=== PATIENT | male | born 1975 | race Caucasian/White ===

== ENCOUNTER 2018-11-16 11:41 | Emergency (ER) | payer BC, OTHER ==
[2018-11-16 11:49] VITALS: BP 107/63; PULSE 82; TEMP 97.6; BMI 22.7
[2018-11-16] MEDS ORDERED: ACETAMINOPHEN 325 MG TABLET (FP) PO ONE (12:21)
[2018-11-16] MEDS ORDERED: ACETAMINOPHEN 325 MG TABLET (FP) ONE (12:32)
[2018-11-16 12:42] LABS: BASO % 0.5 % (0-2.0); EOS % 2.3 % (0-4.5); HEMATOCRIT 46.6 % (35.4-49); HEMOGLOBIN 15.9 GM/dL (11.7-16.9); LYMPH % 37.9 % (8-40); MCH 28.7 pg (25.7-33.7); MEAN CELL VOLUME 84.4 fl (80-96); MEAN PLT VOLUME 8.2 fl (7.5-11.1); MONO % 4.9 % (3.8-10.2); NEUT % 54.4 % (42.8-82.8); PLATELET COUNT 289 K/MM3 (134-434); RBC 5.52 M/mm3 (4.00-5.60); RDW 13.7 % (11.9-15.9); WHITE BLOOD COUNT 6.5 K/mm3 (4.0-10.0)
--- NOTE | 2018-11-16 12:50 | PDOC ---
History of Present Illness - General Chief Complaint: Chest Pain Stated Complaint: LT. SIDE PAIN Time Seen by Provider: 11/16/18 12:17 History Source: Patient Exam Limitations: Clinical Condition - History of Present Illness Initial Comments: 11/16/18 12:45 Patient with no significant past medical history present with complaint of five- day history of left-sided chest pain under lower ribs which has been worsening since yesterday. Patient reported doing moving stuff from his garage 5 days ago and did a lot of heavy lifting. Patient reported pain to left-sided chest wall with movement and deep breathing. Denies shortness of breath, palpitation, dizziness, nausea or vomiting. Denies headache, lightheadedness, abdominal pain , fever or chills. Patient did not take anything for symptoms Timing/Duration: other (5 days) Past History - Past Medical History Allergies/Adverse Reactions: Allergies Allergy/AdvReac Type Severity Reaction Status Date / Time No Known Allergies Allergy Verified 11/16/18 11:45 Home Medications: Ambulatory Orders Esomeprazole Mag Trihydrate [Nexium] 40 mg PO DAILY #30 capsule 12/09/14 Pantoprazole Sodium [Protonix] 40 mg PO DAILY #30 tablet. 03/04/16 Ibuprofen 800 mg PO Q8H PRN #20 tablet 11/16/18 COPD: No - Immunization History Immunization Up to Date: Yes - Suicide/Smoking/Psychosocial Hx Smoking History: Never smoked Have you smoked in the past 12 months: No Number of Cigarettes Smoked Daily: 0 If you are a former smoker, when did you quit?: 10/2015 Information on smoking cessation initiated: No Hx Alcohol Use: No Drug/Substance Use Hx: No Review of Systems - Review of Systems Able to Perform ROS?: Yes Is the patient limited Uzbek proficient: No Constitutional: No: Chills, Fever, Weakness HEENTM: No: Symptoms Reported, See HPI, Eye Pain, Blurred Vision, Tearing, Recent change in vision, Double Vision, Cataracts, Ear Pain, Ocular Prothesis, Ear Discharge, Nose Pain, Nose Congestion, Tinnitus, Nose Bleeding, Hearing Loss , Throat Pain, Throat Swelling, Mouth Pain, Dental Problems, Difficulty Swallowing, Mouth Swelling, Other Respiratory: No: Symptoms reported, See HPI, Cough, Orthopnea, Shortness of Breath, SOB with Exertion, SOB at Rest, Stridor, Wheezing, Productive cough, Hemoptysis, Other Cardiac (ROS): Yes: Symptoms Reported, See HPI, Chest Pain (left lower chest). No: Edema, Irregular Heart Rate, Lightheadedness, Palpitations, Syncope, Chest Tightness, Other ABD/GI: No: Nausea, Vomiting Musculoskeletal: Yes: Symptoms Reported, See HPI, Muscle Pain (left lower ribs) Integumentary: No: Symptoms Reported Neurological: No: Headache, Paresthesia, Weakness, Dizziness All Other Systems: Reviewed and Negative *Physical Exam - Vital Signs Last Vital Signs Temp Pulse Resp BP Pulse Ox 97.6 F 82 17 107/63 99 11/16/18 11:46 11/16/18 11:46 11/16/18 11:46 11/16/18 11:46 11/16/18 11:46 - Physical Exam Comments: 11/16/18 12:50 GENERAL: Well developed, well nourished. Awake and alert. No acute distress. HEENT: Normocephalic, atraumatic. PERRLA, EOMI. No conjunctival pallor. Sclera are non-icteric. Moist mucous membranes. Oropharynx is clear. NECK: Supple. Full ROM. CARDIOVASCULAR: Regular rate and rhythm. No murmurs, rubs, or gallops. Distal pulses are 2+ and symmetric. PULMONARY: No evidence of respiratory distress. Lungs clear to auscultation bilaterally. No wheezing, rales or rhonchi. ABDOMINAL: Soft. Non-tender. Non-distended. No rebound or guarding. No organomegaly. Normoactive bowel sounds. MUSCULOSKELETAL Normal range of motion at all joints. EXTREMITIES: No cyanosis. No clubbing. No edema. No calf tenderness. SKIN: Warm and dry. Normal capillary refill. No rashes. No jaundice. NEUROLOGICAL: Alert, awake, appropriate. Gait is normal without ataxia. PSYCHIATRIC: Cooperative. Good eye contact. Appropriate mood General Appearance: Yes: Nourished, Appropriately Dressed. No: Apparent Distress ED Treatment Course - LABORATORY CBC & Chemistry Diagram: 11/16/18 12:35 - ADDITIONAL ORDERS Additional order review: 11/16/18 12:35 RBC 5.52 MCV 84.4 MCHC 34.0 RDW 13.7 MPV 8.2 Neutrophils % 54.4 Lymphocytes % 37.9 Monocytes % 4.9 Eosinophils % 2.3 Basophils % 0.5 - RADIOLOGY Radiology Studies Ordered: Category Date Time Status CHEST PA & LAT [RAD] Stat Radiology 11/16/18 12:21 Ordered RIBS-LEFT SIDE [RAD] Stat Radiology 11/16/18 12:22 Ordered Medical Decision Making - Medical Decision Making 11/16/18 12:47 Patient with no significant past medical history present with complaint of five- day history of left-sided chest pain under lower ribs which has been worsening since yesterday. Patient reported doing moving stuff from his garage 5 days ago and did a lot of heavy lifting. Patient reported pain to left-sided chest wall with movement and deep breathing. Denies shortness of breath, palpitation, dizziness, nausea or vomiting. Denies headache, lightheadedness, abdominal pain , fever or chills. Patient did not take anything for symptoms Exam significant for reproducible moderate tenderness to chest wall of left lower rib cage. Normal cardio exam. Lungs clear to auscultation bilateral. No abdominal tenderness. Symptoms likely costochondritis from heavy lifting versus less likely cardiogenic pain. CBC and cardiac profile labs ordered. EKG ordered. Chest x-ray ordered to rule out acute chest pathology. Tylenol 975 mg by mouth ordered for pain. Reassess after lab and imaging 11/16/18 13:32 cBC and cardiac profile within normal limits. Chest x-ray shows no acute pathology. Patient symptoms likely costochondritis and stable for discharge on ibuprofen as needed for pain with strict follow-up. Plan discussed with patient patient agrees with plan. Patient stable for discharge *DC/Admit/Observation/Transfer Diagnosis at time of Disposition: Costochondral chest pain Intercostal muscle strain Qualifiers: Encounter type: initial encounter Qualified Code(s): S29.011A - Strain of muscle and tendon of front wall of thorax, initial encounter - Discharge Dispostion Disposition: HOME Condition at time of disposition: Stable Decision to Admit order: No - Prescriptions Prescriptions: Ibuprofen 800 mg PO Q8H PRN #20 tablet PRN Reason: pain - Referrals Referrals: Haider Raphael MD [Staff Physician] - - Patient Instructions Printed Discharge Instructions: DI for Chest Pain, DI for Costochondritis Additional Instructions: Your labs and checks x-ray is normal. Your symptoms is likely from muscle pain. Take prescribed ibuprofen as needed for pain. Apply warm compresses to chest wall 2-3 times a day as needed for pain. Come back to emergency room if worsening chest pain with shortness of breath, dizziness, severe vomiting. Follow-up referred cardiology if symptoms persist for more than 4 days - Post Discharge Activity
--- NOTE | 2018-11-16 12:53 | PDOC ---
*Physical Exam - Vital Signs Last Vital Signs Temp Pulse Resp BP Pulse Ox 97.6 F 82 17 107/63 99 11/16/18 11:46 11/16/18 11:46 11/16/18 11:46 11/16/18 11:46 11/16/18 11:46 - Physical Exam Comments: 11/16/18 12:47 vss well appearing seated in stretcher, no respiratory distress s1s2 rrr, no murmur ctab skin clear, no rash, focal reproducible ttp between L 6th and 7th ribs, no focal bony rib deformity/ttp/crepitus. Heart Score/ECG Review #1 ECG reviewed & interpreted by me at: 11:52 General ECG Interpretation: Sinus Rhythm, Normal Rate (69), Normal Intervals ( qtc 432), No acute ischemic changes ED Treatment Course - LABORATORY CBC & Chemistry Diagram: 11/16/18 12:35 - ADDITIONAL ORDERS Additional order review: 11/16/18 12:35 RBC 5.52 MCV 84.4 MCHC 34.0 RDW 13.7 MPV 8.2 Neutrophils % 54.4 Lymphocytes % 37.9 Monocytes % 4.9 Eosinophils % 2.3 Basophils % 0.5 - Medications Given in the ED: ED Medications Discontinued Medications Generic Name Dose Route Start Last Admin Trade Name Freq PRN Reason Stop Dose Admin Acetaminophen 975 mg 11/16/18 12:21 11/16/18 12:30 Tylenol - PO 11/16/18 12:22 975 mg ONCE ONE Administration Medical Decision Making - Medical Decision Making 11/16/18 12:50 Healthy 43-year-old male who presents with left lower anterior rib pain that began about last night. The patient was moving heavy furniture throughout the day, developed gradual onset of focal pain worse with positional changes and deep inspiration but not associated with any precordial chest pain or dyspnea on exertion. No cough or fevers or chills, no direct injury. Did not take anything for pain, presents for evaluation. Exam as noted and normal 43-year-old male with left anterior rib muscle strain likely from heavy lifting , no red flags on history or physical exam and reproducible findings suggestive of musculoskeletal etiology, not consistent with cardiopulmonary etiology. EKG, chest x-ray Pain control Reassess and disposition accordingly *DC/Admit/Observation/Transfer Diagnosis at time of Disposition: Intercostal muscle strain Qualifiers: Encounter type: initial encounter Qualified Code(s): S29.011A - Strain of muscle and tendon of front wall of thorax, initial encounter - Referrals - Patient Instructions - Post Discharge Activity
[2018-11-16] MEDS ORDERED: IBUPROFEN 400 MG TABLET (FP) PO ONE ×2 (13:37→14:09)
--- NOTE | 2018-11-16 15:30 | EKG ---
Test Reason : Blood Pressure : / mmHG Vent. Rate : 069 BPM Atrial Rate : 069 BPM P-R Int : 114 ms QRS Dur : 088 ms QT Int : 404 ms P-R-T Axes : -17 077 073 degrees QTc Int : 432 ms NORMAL SINUS RHYTHM WITH SINUS ARRHYTHMIA NORMAL ECG WHEN COMPARED WITH ECG OF 04-MAR-2016 01:24, PREMATURE ATRIAL COMPLEXES ARE NO LONGER PRESENT Confirmed by RENITA COOK, CONSTANCE ([id number]) on 11/16/2018 3:29:59 PM Referred By: Confirmed By:CONSTANCE MARAVILLA MD
== END 2018-11-16 14:07 | disposition home or self-care (01) ==
LOC: JER 11:41
DX: M94.0 Chondrocostal junction syndrome [Tietze] (principal)
CPT/HCPCS: 36415; 71046-TC-FY; 71101-TC-LT-FY; 82550; 84484; 85025; 93005; 93010; 99281-25

== ENCOUNTER 2019-11-18 05:26 | Emergency (ER) | payer OTHER ==
[2019-11-18 05:42] VITALS: BMI 21.9
--- NOTE | 2019-11-18 06:14 | PDOC ---
History of Present Illness - General Chief Complaint: Pain, Acute Stated Complaint: ABD PAIN Time Seen by Provider: 11/18/19 05:42 History Source: Patient Exam Limitations: No Limitations - History of Present Illness Initial Comments: 44M with PMH of nephrolithiasis and acute pancreatitis presents to the ED with abdominal pain that started 3 hours ago while at work, patient was sitting. Described as sharp, epigastric pain, radiates to LUQ, associated with nausea and x2 bout of vomiting. No current nausea. No trauma or rash. Patient drank 6 pack 2 nights ago. Denies cp, sob, fever/chills, diarrhea/constipation, hematemesis, hematochezia, hematuria, testicular pain or swelling. PMH: as in HPI SH: see below Meds: none Allergies: NKDA Tob/Etoh/Rec drugs: social alcohol and tobacco only, no rec ROS GENERAL/CONSTITUTIONAL: No fever or chills. No weakness. HEENT: No change in vision. No ear pain or discharge. No sore throat. CARDIOVASCULAR: No chest pain or shortness of breath RESPIRATORY: No cough, wheezing, or hemoptysis. GASTROINTESTINAL: +nausea, vomiting; no diarrhea or constipation. GENITOURINARY: No dysuria, frequency, or change in urination. MUSCULOSKELETAL: No joint or muscle swelling or pain. No neck or back pain. SKIN: No rash NEUROLOGIC: No headache, vertigo, loss of consciousness, or change in strength/sensation. ENDOCRINE: No increased thirst. No abnormal weight change HEMATOLOGIC/LYMPHATIC: No anemia, easy bleeding, or history of blood clots. ALLERGIC/IMMUNOLOGIC: No hives or skin allergy. PE GENERAL: Awake, alert, and fully oriented, in no acute distress HEAD: No signs of trauma, normocephalic, atraumatic EYES: PERRLA, EOMI, sclera anicteric, conjunctiva clear ENT: Auricles normal inspection, hearing grossly normal, nares patent, oropharynx clear without exudates. Moist mucosa NECK: Normal ROM, supple, no LAD, JVD, or masses HEART: Regular rate and rhythm, normal S1 and S2, no murmurs, rubs or gallops, peripheral pulses normal and equal bilaterally. LUNGS: No distress, speaks full sentences, clear to auscultation bilaterally ABDOMEN: Soft, nontender. No guarding, no rebound. No masses. Negative CVA. Negative Jacobson. EXTREMITIES: Normal inspection, Normal range of motion, no edema. No clubbing or cyanosis. NEUROLOGICAL: CNII-XII grossly intact. Normal speech, normal gait, no focal sensorimotor deficits SKIN: Warm, Dry, normal turgor, no rashes or lesions noted Assessment and Plan 1. GERD 2. Gastritis 3. ACS r/o 4. Pancreatitis Sushant Galloway, PGY1 Emergency Medicine Past History - Medical History Allergies/Adverse Reactions: Allergies Allergy/AdvReac Type Severity Reaction Status Date / Time No Known Allergies Allergy Verified 11/18/19 05:42 Home Medications: Ambulatory Orders Esomeprazole Mag Trihydrate [Nexium] 40 mg PO DAILY #30 capsule 12/09/14 Pantoprazole Sodium [Protonix] 40 mg PO DAILY #30 tablet.dr 03/04/16 Ibuprofen 800 mg PO Q8H PRN #20 tablet 11/16/18 COPD: No - Immunization History Immunization Up to Date: Yes - Psycho-Social/Smoking History Smoking History: Never smoked Have you smoked in the past 12 months: No Number of Cigarettes Smoked Daily: 0 If you are a former smoker, when did you quit?: 10/2015 - Substance Abuse Hx (Audit-C & DAST Scrn) How often the patient has a drink containing alcohol: Never Score: In Men: 4 or > Positive; In Women: 3 or > Positive: 0 Screen Result (Pos requires Nsg. Audit-10AR): Negative In the last yr the pt used illegal drug/Rx for NonMed reason: No Score: Yes response is considered Positive: 0 Screen Result (Positive result requires Nsg. DAST-10): Negative *Physical Exam - Vital Signs Last Vital Signs Temp Pulse Resp BP Pulse Ox 98 F 80 18 115/81 99 11/18/19 05:40 11/18/19 05:40 11/18/19 05:40 11/18/19 05:40 11/18/19 05:40 Medical Decision Making - Medical Decision Making 44M with PMH of nephrolithiasis and acute pancreatitis presents to the ED with abdominal pain that started 3 hours ago while at work, patient was sitting. Described as sharp, epigastric pain, radiates to LUQ, associated with nausea and x2 bout of vomiting. No current nausea. No trauma or rash. DDx: 1. Pancreatitis 2. ACS r/o 3. Gastritis 4. GERD -CBC, CMP, lipase, troponin, EKG, CXR -zofran, IV LR fluids, pepcid signed out to day team -pending labs Discharge - Discharge Information Problems reviewed: Yes Clinical Impression/Diagnosis: Abdominal pain - Follow up/Referral - Patient Discharge Instructions - Post Discharge Activity
--- NOTE | 2019-11-18 06:25 | PDOC ---
Attending Attestation - Resident Resident Name: Sushant Galloway - ED Attending Attestation I have performed the following: I have examined & evaluated the patient, The case was reviewed & discussed with the resident, I agree w/resident's findings & plan, Exceptions are as noted - HPI HPI: 11/18/19 06:22 44 yo M h/o pancreatitis p/w epigastric abd pain now radiating to LUQ/L lower chest x3 hours a/w nausea and 2 episodes of vomiting. States he thinks it feels similar to previous pancreatitis. Reports drinking a six pack 2 days ago but otherwise denies daily etoh use. Denies SOB or cough. No fevers. No urinary complaints. - Physicial Exam PE: 11/18/19 06:24 General: well appearing Chest: CTAB, good air entry CVS: + s1 s2, RRR ABdomen: soft, +epigastric ttp, no rebound, no guarding, no appreciable masses - Medical Decision Making 11/18/19 06:24 44 yo M with epigastric pain, possible pancreatitis vs. gastritis. Doubt obstruction or kidney stone. Also very low suspicion for ACS as chest pain is atypical and more likely GI etiology and EKG without ischemic changes. Plan: -labs -pain control -reassess This clinical encounter is taking place during a federal and state health care emergency attributable to the novel Jacobs Virus pandemic. The [place] of the Department of Health and Human Services has declared, pursuant to the Public Health Service Act 319F-3 (42 U.S[place]C. 247d-6d), that a covered persons activities related to medical countermeasures against COVID-19 will be immune from liability under Federal and State law. Discharge - Discharge Information Problems reviewed: Yes Clinical Impression/Diagnosis: Abdominal pain, Nausea & vomiting Condition: Improved Disposition: HOME - Follow up/Referral - Patient Discharge Instructions Patient Printed Discharge Instructions: DI for Abdominal Pain-Adult Additional Instructions: Additional Instructions: Please return to the emergency department with any new or worsening symptoms or concerns. Please follow up with your primary care physician within 72 hours. A referral for GI specialist has been included as well Please purchase over the counter famotidine for pain relief - Post Discharge Activity Work/Back to School Note: Back to Work
[2019-11-18] MEDS ORDERED: FAMOTIDINE 20 MG/50 ML IVPB 20 MG/50 ML MG IVPB ONE ×2 (06:44→06:59)
[2019-11-18] MEDS ORDERED: ONDANSETRON 4 MG/2 ML VIAL IVPUSH ONE (06:44)
[2019-11-18] MEDS ORDERED: LACTATED RINGERS SOLUTION 1000 ML INFUS.BAG IV ONE (06:44)
[2019-11-18 07:10] LABS: BASO % 0.7 % (0-2.0); EOS % 1.6 % (0-4.5); HEMATOCRIT 42.5 % (35.4-49); LYMPH % 31.6 % (8-40); MCH 29.6 pg (25.7-33.7); MCHC 35.4 g/dl (32.0-35.9); MEAN CELL VOLUME 83.8 fl (80-96); MEAN PLT VOLUME 8.3 fl (7.5-11.1); MONO % 6.7 % (3.8-10.2); NEUT % 59.4 % (42.8-82.8); PLATELET COUNT 257 K/MM3 (134-434); RBC 5.07 M/mm3 (4.00-5.60); RDW 13.9 % (11.9-15.9); WHITE BLOOD COUNT 6.3 K/mm3 (4.0-10.0)
[2019-11-18 07:43] LABS: ALBUMIN 3.7 g/dl (3.4-5.0); ALK PHOS 41 U/L (45-117); ANION GAP 6 MMOL/L (8-16); BILIRUBIN,TOTAL 0.6 mg/dL (0.2-1); BLOOD UREA NITROGEN 17.2 mg/dL (7-18); CALCIUM 8.6 mg/dL (8.5-10.1); CHLORIDE 112 mmol/L (98-107); CO2 25 mmol/L (21-32); CREATININE 1.1 mg/dL (0.55-1.3); GLUCOSE,RANDOM 109 mg/dL (74-106); LIPASE 397 U/L (73-393); POTASSIUM 3.9 mmol/L (3.5-5.1); SGOT/AST 19 U/L (15-37); SGPT/ALT 44 U/L (13-61); SODIUM 143 mmol/L (136-145); TOT PROT 6.6 g/dl (6.4-8.2)
--- NOTE | 2019-11-18 08:36 | PDOC ---
*Physical Exam - Vital Signs Last Vital Signs Temp Pulse Resp BP Pulse Ox 98 F 80 18 115/81 99 11/18/19 05:40 11/18/19 05:40 11/18/19 05:40 11/18/19 05:40 11/18/19 05:40 ED Treatment Course - LABORATORY CBC & Chemistry Diagram: 11/18/19 06:45 11/18/19 06:45 - ADDITIONAL ORDERS Additional order review: Laboratory Results 11/18/19 06:45 Sodium 143 Potassium 3.9 Chloride 112 H Carbon Dioxide 25 Anion Gap 6 L BUN 17.2 Creatinine 1.1 Est GFR (CKD-EPI)AfAm 94.13 Est GFR (CKD-EPI)NonAf 81.21 Random Glucose 109 H Calcium 8.6 Total Bilirubin 0.6 AST 19 ALT 44 Alkaline Phosphatase 41 L Creatine Kinase 127 Troponin I < 0.02 Total Protein 6.6 Albumin 3.7 Lipase 397 H 11/18/19 06:45 RBC 5.07 MCV 83.8 MCHC 35.4 RDW 13.9 MPV 8.3 Neutrophils % 59.4 Lymphocytes % 31.6 Monocytes % 6.7 Eosinophils % 1.6 Basophils % 0.7 - Medications Given in the ED: ED Medications Discontinued Medications Generic Name Dose Route Start Last Admin Trade Name Freq PRN Reason Stop Dose Admin Famotidine/Sodium Chloride 20 mg in 50 mls @ 100 mls/hr 11/18/19 06:44 11/18/19 07:05 Pepcid 20 Mg Premixed Ivpb - IVPB 11/18/19 07:13 100 mls/hr ONCE ONE Administration Lactated Ringer's 1,000 ml 11/18/19 06:44 11/18/19 07:05 Lactated Ringers Solution IV 11/18/19 06:45 1,000 ml ONCE ONE Administration Ondansetron HCl 4 mg 11/18/19 06:44 11/18/19 07:05 Zofran Injection IVPUSH 11/18/19 06:45 4 mg ONCE ONE Administration Medical Decision Making - Medical Decision Making 11/18/19 08:[address] Galloway 44M with PMH of nephrolithiasis and acute pancreatitis presents to the ED with abdominal pain that started 3 hours ago while at work, patient was sitting. Described as sharp, epigastric pain, radiates to LUQ, associated with nausea and x2 bout of vomiting. No current nausea. No trauma or rash. Signed out to followup labs 11/18/19 08:32 borderline elevated lipase to 397, trop negative cxr with no acute abnormality will Dc with recs to continue pepcid and abstain from alcohol and pcp followup patient reports improvement of pain and no current nausea all questions answered Discharge - Discharge Information Problems reviewed: Yes Clinical Impression/Diagnosis: Abdominal pain, Nausea & vomiting Condition: Improved Disposition: HOME - Follow up/Referral - Patient Discharge Instructions Patient Printed Discharge Instructions: DI for Abdominal Pain-Adult Additional Instructions: Additional Instructions: Please return to the emergency department with any new or worsening symptoms or concerns. Please follow up with your primary care physician within 72 hours. A referral for GI specialist has been included as well Please purchase over the counter famotidine for pain relief - Post Discharge Activity
[2019-11-18 09:28] VITALS: BP 120/76; PULSE 81; TEMP 98.1
--- NOTE | 2019-11-18 11:54 | EKG ---
Test Reason : Blood Pressure : / mmHG Vent. Rate : 065 BPM Atrial Rate : 065 BPM P-R Int : 116 ms QRS Dur : 088 ms QT Int : 390 ms P-R-T Axes : -16 073 064 degrees QTc Int : 405 ms NORMAL SINUS RHYTHM WITH SINUS ARRHYTHMIA WHEN COMPARED WITH ECG OF 16-NOV-2018 11:52, NO SIGNIFICANT CHANGE WAS FOUND Confirmed by LISSY ADDISON MD ([id number]) on 11/18/2019 11:54:07 AM Referred By: Confirmed By:LISSY ADDISON MD
== END 2019-11-18 09:35 | disposition home or self-care (01) ==
LOC: JER 05:26
PROC: 3E033GC Introduction of Other Therapeutic Substance into Peripheral Vein, Percutaneous Approach (ICD-10-PCS; principal; 2019-11-18)
DX: R10.9 Unspecified abdominal pain (principal); R11.2 Nausea with vomiting, unspecified
CPT/HCPCS: 36415; 71046-TC-FY; 80053; 82550; 83690; 84484; 85025; 93005; 93010; 99285-25

== ENCOUNTER 2021-07-19 01:21 | Emergency (ER) | payer BC, OTHER ==
[2021-07-19 01:46] VITALS: TEMP 97.8; BMI 23.5
[2021-07-19] MEDS ORDERED: ACETAMINOPHEN 1000 MG/100 ML BAG IVPB ONE (02:15)
[2021-07-19] MEDS ORDERED: ONDANSETRON 4 MG/2 ML VIAL IVPUSH ONE (02:15)
[2021-07-19] MEDS ORDERED: LACTATED RINGERS SOLUTION 1000 ML INFUS.BAG IV ONE (02:15)
[2021-07-19] MEDS ORDERED: FAMOTIDINE 20 MG/50 ML IVPB 20 MG/50 ML MG IVPB ONE (02:15)
[2021-07-19] MEDS ORDERED: ACETAMINOPHEN INJECTION 100 ML IVPB ONE (02:22)
[2021-07-19] MEDS ORDERED: FAMOTIDINE 10 MG/ML VIAL IVPB ONE (02:22)
[2021-07-19] MEDS ORDERED: ONDANSETRON 4 MG/2 ML VIAL ONE (02:22)
[2021-07-19 03:17] LABS: ALBUMIN 3.8 g/dl (3.4-5.0); BLOOD UREA NITROGEN 13.2 mg/dL (7-18); CALCIUM 8.8 mg/dL (8.5-10.1)
[2021-07-19 03:19] LABS: BASO % 0.3 % (0-2.0); EOS % 1.2 % (0-4.5); HEMATOCRIT 45.7 % (35.4-49); HEMOGLOBIN 15.7 GM/dL (11.7-16.9); LYMPH % 16.7 % (8-40); MCH 28.7 pg (25.7-33.7); MCHC 34.3 g/dl (32.0-35.9); MEAN CELL VOLUME 83.6 fl (80-96); MONO % 5.8 % (3.8-10.2); PLATELET COUNT 330 10^3/uL (134-434); RBC 5.47 M/mm3 (4.00-5.60); RDW 13.6 % (11.9-15.9); WHITE BLOOD COUNT 9.7 K/mm3 (4.0-10.0)
[2021-07-19 03:21] LABS: CREATININE 1.3 mg/dL (0.55-1.3)
[2021-07-19 03:22] LABS: BILIRUBIN,TOTAL 0.8 mg/dL (0.2-1)
[2021-07-19 04:24] VITALS: BP 108/65; PULSE 91
== END 2021-07-19 04:41 | disposition home or self-care (01) ==
LOC: JER 01:21
PROC: 3E033GC Introduction of Other Therapeutic Substance into Peripheral Vein, Percutaneous Approach (ICD-10-PCS; principal; 2021-07-19)
DX: R19.7 Diarrhea, unspecified (principal)
CPT/HCPCS: 36415; 74177-TC; 80053; 83605; 83690; 85025; 99285-25; Q9967

== ENCOUNTER 2023-09-06 22:58 | Emergency (ER) | payer BC, OTHER ==
[2023-09-06 23:24] VITALS: BP 107/66; PULSE 68; RESP 15; TEMP 97.3; BMI 23.5
== END 2023-09-07 00:55 | disposition home or self-care (01) ==
LOC: JER 22:58
DX: K64.8 Other hemorrhoids (principal); K62.89 Other specified diseases of anus and rectum
CPT/HCPCS: 99283-25